=== PATIENT | male | born 1960 | race American Indian/Alaskan Native ===

== ENCOUNTER 2018-04-23 12:20 | Emergency (ER) | payer OTHER ==
[2018-04-23 12:29] VITALS: BP 160/85
[2018-04-23] MEDS ORDERED: KEFLEX PO ONE (16:24)
[2018-04-23] MEDS ORDERED: BACTRIM DS PO ONE (16:24)
[2018-04-23] MEDS ORDERED: BENADRYL PO ONE (16:24)
[2018-04-23] MEDS ORDERED: MOTRIN PO ONE (16:28)
[2018-04-23 16:57] LABS: Basophils % (Auto) 0.2 % (0.0-1.8); Eosinophils # (Auto) 0.4 K/mm3 (0.0-0.4); Eosinophils % (Auto) 4.9 % (0.0-4.3); Hematocrit 46.4 % (35.5-45.6); Hemoglobin 14.7 gm/dl (11.8-15.2); Lymphocytes # (Auto) 1.1 K/mm3 (1.2-5.4); Lymphocytes % (Auto) 14.9 % (13.4-35.0); Mean Corpuscular HGB Conc 32 % (32-34); Mean Corpuscular Hemoglobin 29 pg (28-32); Mean Corpuscular Volume 90 fl (84-94); Monocytes # (Auto) 0.6 K/mm3 (0.0-0.8); Monocytes % (Auto) 8.4 % (0.0-7.3); Platelet Count 255 K/mm3 (140-440); Red Blood Count 5.17 M/mm3 (3.65-5.03); Red Cell Distribution Width 15.5 % (13.2-15.2)
[2018-04-23 17:11] LABS: Alanine Aminotransferase 37 units/L (7-56); Albumin 3.9 g/dL (3.9-5); BUN/Creatinine Ratio 10; Blood Urea Nitrogen 10 mg/dL (9-20); Calcium 9.5 mg/dL (8.4-10.2); Hemolysis Index 5; Lipase 19 units/L (13-60)
--- NOTE | 2018-04-23 18:22 | Emergency Department Report ---
ED Rash HPI - HPI Chief Complaint: Skin Rash Stated Complaint: RASH Time Seen by Provider: 04/23/18 16:23 Duration: 2 Days Location: Upper Extremities (bilateral upper extremities), Lower Extremities ( bilateral lower extremities) Suspected Cause: Plant (poison maya ) Rash Symptoms: Yes Itching, Yes Blistering, No Facial Swelling, No Tongue/Oral Swelling, No Breathing Difficulties, No Choking Sensation, No Wheezing/Dyspnea, No Peeling, No Fever, No Lightheaded, No Malaise, No Myalgias Severity: severe Other History: This is a 57-year-old -[place] male who presents with a generalized rash from gardening 2 days ago. History of diabetes type 2 currently taking metformin. Patient reports removing debris out of yard and brushing against a tree that was covered with poison maya. He took a shower with the same washcloth that he was using to white sweat from face while working in yard. When he woke morning he noticed rash spreading from arms to legs. This morning the rash turned into large bumps that are itching and tender to touch. Denies difficulty swallowing, fever, drooling, and enlarged tongue. ED Review of Systems ROS: Stated complaint: RASH Other details as noted in HPI Constitutional: denies: chills, fever Respiratory: denies: cough, shortness of breath, wheezing Cardiovascular: denies: chest pain, palpitations, edema, syncope Gastrointestinal: denies: abdominal pain, nausea, diarrhea Skin: rash (generalized rash), pruritus. denies: lesions Neurological: denies: headache, weakness, numbness, paresthesias Psychiatric: denies: anxiety, depression ED Past Medical Hx - Past Medical History Previous Medical History?: No - Surgical History Past Surgical History?: No - Social History Smoking Status: Never Smoker Substance Use Type: None - Medications Home Medications: Home Medications Medication Instructions Recorded Confirmed Last Taken Type Doxycycline Hyclate [Vibramycin] 100 mg PO BID 7 Days #14 capsule 04/23/18 Unknown Rx Sulfamethoxazole/Trimethoprim 1 each PO BID 7 Days #14 tablet 04/23/18 Unknown Rx [Bactrim DS TAB] Triamcinolone 0.1% [Kenalog 0.1% 1 applic TP BID #60 gram 04/23/18 Unknown Rx CREAM] Rash Exam - Exam General: Vital signs noted. No distress. Alert and acting appropriately. HEENT: No Periorbital Edema, No Conjuctival Injection, No Chemosis, No Perioral Edema, No Tongue Edema, No Uvular Edema, No Compromised Airway, No Drooling Lungs: Yes Good Air Exchange (Normal Breath Sounds), No Wheezes, No Ronchi, No Stridor, No Cough, No Labored Respirations, No Retractions, No Use of Accessory Muscles, No Other Abnormal Lung Sounds Heart: Yes Regular, No Murmur Skin: Yes Maculopapular Rash (multiple 2-3 mm papules on bilateral upper and bilateral lower extremity), No Urticarial Rash, No Morbilliform rash, No Bulla(e ), No Excoriations, No Weeping, No Tenderness, No Erythema, No Edema, No Encrustations, No Other Other: Positive: Abdomen Normal, Neurologic Normal ED Course Vital Signs 04/23/18 12:25 Temperature 98.6 F Pulse Rate 90 Respiratory 16 Rate Blood Pressure 160/85 O2 Sat by Pulse 96 Oximetry ED Medical Decision Making - Lab Data Result diagrams: 04/23/18 16:39 04/23/18 16:39 - Medical Decision Making This is a 57-year-old male presents generalized rash from possible poison maya. Patient examined by me and Dr. Ordoñez. History of diabetes type 2 currently taking metformin. Vitals stable. Patient is drinking fluids w/o distress in ER. Obtain CBC, CMP, total kinase. Elevated total kinase, all other labs unremarkable. Given Motrin 600 mg by mouth, Bactrim DS by mouth, Benadryl 50 mg by mouth, and Keflex 500 mg by mouth in the ER. Physical assessment susceptible of impetigo. Start doxycycline 100 mg by mouth twice a day 7 days and Bactrim DS. 1 tab by mouth twice a day x 7 days. F/U with PCP in 24-72 hours. Discussed plan with patient and agreed to plan. Critical care attestation.: If time is entered above; I have spent that time in minutes in the direct care of this critically ill patient, excluding procedure time. ED Disposition Clinical Impression: Impetigo Disposition: - TO HOME OR SELFCARE Is pt being admited?: No Does the pt Need Aspirin: No Condition: Stable Instructions: Impetigo (ED) Additional Instructions: Complete antibiotics as prescribed. Clean area daily and apply a thin layer of steroid cream twice a day avoiding eyes. Follow-up with primary care 2-3 days. Prescriptions: Doxycycline Hyclate [Vibramycin] 100 mg PO BID 7 Days #14 capsule Sulfamethoxazole/Trimethoprim [Bactrim DS TAB] 1 each PO BID 7 Days #14 tablet Triamcinolone 0.1% [Kenalog 0.1% CREAM] 1 applic TP BID #60 gram Referrals: [facility] [Outside] - 3-5 Days [facility] [Outside] - 3-5 Days [facility] [Outside] - 3-5 Days Forms: Work/School Release Form(ED) Time of Disposition: 18:28 Print Language: CAMEROONIAN
--- NOTE | 2018-04-23 19:21 | Emergency Department Report ---
Chief Complaint: Skin Rash Stated Complaint: RASH Time Seen by Provider: 04/23/18 16:23 - HPI History of Present Illness: The patient is a 57-year-old male who presents for evaluation of rash. The patient reports rash throughout the body for the past 2-3 days, progressive, severe for the past one day. It was itching but the itching has currently resolved. He shares that he believes the rash spread from a cloth that he used to wipe all over his body after cutting grass outside. Denies headache, neck pain or stiffness, chest pain, cough, dyspnea, joint swelling or redness, or abdominal pain. - Exam Vital Signs: Vital Signs 04/23/18 12:25 Temperature 98.6 F Pulse Rate 90 Respiratory 16 Rate Blood Pressure 160/85 O2 Sat by Pulse 96 Oximetry MSE screening note: Focused history and physical exam performed. Due to findings the following was ordered: ED Medical Decision Making - Lab Data Result diagrams: 04/23/18 16:39 04/23/18 16:39 ED Disposition for MSE Clinical Impression: Impetigo Disposition: DC- TO HOME OR SELFCARE Condition: Stable Instructions: Impetigo (ED) Additional Instructions: Complete antibiotics as prescribed. Clean area daily and apply a thin layer of steroid cream twice a day avoiding eyes. Follow-up with primary care 2-3 days. Prescriptions: Doxycycline Hyclate [Vibramycin] 100 mg PO BID 7 Days #14 capsule Sulfamethoxazole/Trimethoprim [Bactrim DS TAB] 1 each PO BID 7 Days #14 tablet Triamcinolone 0.1% [Kenalog 0.1% CREAM] 1 applic TP BID #60 gram Referrals: [facility] [Outside] - 3-5 Days [facility] [Outside] - 3-5 Days [facility] [Outside] - 3-5 Days Forms: Work/School Release Form(ED) Print Language: SWEDISH
== END 2018-04-23 18:40 | disposition home or self-care (01) ==
LOC: ED 12:20
DX: L01.00 Impetigo, unspecified (principal)
CPT/HCPCS: 36415; 80053; 82550; 83690; 85025